=== PATIENT | female | born 1940 | race Caucasian/White ===

== ENCOUNTER 2017-01-12 09:43 | Inpatient (IN) | payer MEDICARE, BC ==
[~2017-01-12] VITALS: Ht 167.6 cm; Wt 100.0 kg
[~2017-01-12 09:43] MED LIST: CELE200C PO; HYDR-3245 PO; IBAN150T PO; LOSA1TAB25 PO
[2017-01-12] MEDS ORDERED: BUPIVACAINE/PF 0.5% ONE (12:38)
[2017-01-12] MEDS ORDERED: TRANEXAMIC ACID 100 MG/ML, 10ML ONE (12:38)
[2017-01-12] MEDS ORDERED: VANCOMYCIN 1,000 MG ONE (12:39)
[2017-01-12] MEDS ORDERED: EPINEPHRINE 1 MG/ML, 1ML ONE (12:39)
[2017-01-12] MEDS ORDERED: LACTATED RINGERS 1,000 ML IV SCH (13:25)
[2017-01-12] MEDS ORDERED: VANCOMYCIN PER PHARMACY MC PRN (13:30)
[2017-01-12 13:58] VITALS: BP 162/81
[2017-01-12] MEDS ORDERED: PHARMACOKINETIC MONITORING MC PRN (14:30)
[2017-01-12] MEDS ORDERED: VANCOMYCIN 1,800 MG in SODIUM CHLORIDE 0.9% 250 ML IV ONE (14:30)
[2017-01-12] MEDS ORDERED: FENTANYL PF 100 MCG/2ML ONE ×5 (14:48→17:44)
[2017-01-12] MEDS ORDERED: FENTANYL PF 250 MCG/5ML ONE (15:40)
[2017-01-12] MEDS ORDERED: PROPOFOL 10 MG/ML, 20ML ONE (15:40)
[2017-01-12] MEDS ORDERED: MIDAZOLAM 1 MG/ML, 2ML ONE (15:40)
[2017-01-12] MEDS ORDERED: KETOROLAC 30 MG/1 ML ONE (15:40)
[2017-01-12] MEDS ORDERED: CEFAZOLIN 1,000 MG ONE (15:40)
[2017-01-12] MEDS ORDERED: DEXAMETHASONE 4 MG/ML, 1ML ONE (15:40)
[2017-01-12] MEDS ORDERED: ONDANSETRON 2MG/ML, 2ML ONE (15:40)
[2017-01-12] MEDS ORDERED: BUPIVACAINE/PF 0.5% INFIL ONE (16:14)
[2017-01-12] MEDS ORDERED: VANCOMYCIN 1,000 MG IM ONE (16:14)
[2017-01-12] MEDS ORDERED: OXYcodone 5 MG/5 ML ORAL.SOL UDC ONE (17:44)
[2017-01-12] MEDS ORDERED: morphine SULFATE 10 MG/ML, 1ML ONE (17:44)
[2017-01-12] MEDS: morphine SULFATE 10 MG/ML, 1ML IV PRN ×2 (17:51→18:07)
[2017-01-12] MEDS ORDERED: ONDANSETRON 2MG/ML, 2ML IVPush PRN ×2 (18:00→21:00)
[2017-01-12] MEDS ORDERED: MEPERIDINE/PF 25MG/0.5ML IVPush PRN (18:00)
[2017-01-12] MEDS ORDERED: OXYcodone 5 MG/5 ML ORAL.SOL UDC PO PRN (18:00)
[2017-01-12] MEDS: FENTANYL PF 100 MCG/2ML IV PRN ×2 (18:33→18:46)
[2017-01-12 18:45] VITALS: BP 128/85
[2017-01-12] MEDS ORDERED: TRANEXAMIC ACID 1,000 MG in SODIUM CHLORIDE 0.9% 100 ML IVPB ONE (19:00)
[2017-01-12 19:51] VITALS: BP 128/85
[2017-01-12] MEDS ORDERED: KETOROLAC 30 MG/1 ML IV PRN (21:00)
[2017-01-12] MEDS ORDERED: OXYcodone IR 5MG TABLET PO PRN (21:00)
[2017-01-12] MEDS ORDERED: DIAZEPAM 5 MG TABLET PO PRN (21:00)
[2017-01-12] MEDS ORDERED: SCOPOLAMINE PATCH, 1.5MG PATCH.TD72 TD SCH (21:00)
[2017-01-12] MEDS ORDERED: LORazepam 2 MG/ML, 1ML IV PRN (21:00)
[2017-01-12] MEDS: SODIUM CHLORIDE FLUSH 10ML SYR IVF SCH (21:00)
[2017-01-12] MEDS ORDERED: MAGNESIUM HYDROXIDE 8%, 30ML UDC PO PRN (21:00)
[2017-01-12] MEDS ORDERED: ZOLPIDEM 5MG TABLET PO PRN (21:00)
[2017-01-12] MEDS ORDERED: PROMETHAZINE 25 MG/ML, 1ML IM PRN (21:00)
[2017-01-12] MEDS ORDERED: PROMETHAZINE 25 MG SUPP PR PRN (21:00)
[2017-01-12] MEDS ORDERED: LORazepam 1MG TABLET PO PRN (21:00)
[2017-01-12] MEDS ORDERED: DIPHENHYDRAMINE 25 MG CAPSULE PO PRN (21:00)
[2017-01-12] MEDS ORDERED: BISACODYL 10 MG SUPP PR PRN (21:00)
[2017-01-12] MEDS ORDERED: SODIUM CHLORIDE 0.9% 1,000ML IVBOLUS PRN (21:00)
[2017-01-12] MEDS ORDERED: ONDANSETRON ODT 4 MG PO PRN (21:00)
[2017-01-12] MEDS ORDERED: morphine SULFATE 10 MG/ML, 1ML IV PRN (21:00)
[2017-01-12] MEDS ORDERED: DEXAMETHASONE 4 MG/ML, 5ML IV PRN (21:00)
[2017-01-12] MEDS ORDERED: SENNA/DOCUSATE TABLET PO PRN (21:00)
[2017-01-12] MEDS ORDERED: ALUMINUM/MAG/SIMETHICONE 30 ML UDC PO PRN (21:00)
[2017-01-12] MEDS ORDERED: ACETAMINOPHEN 500 MG TABLET PO PRN (21:00)
[2017-01-12] MEDS: POTASSIUM CHLORIDE 20 MEQ in D5%-0.45% NACL 1,000 ML IV SCH (21:13)
[2017-01-12] MEDS: PREGABALIN 75 MG CAPSULE PO SCH (22:20)
[2017-01-12] MEDS: DOCUSATE 100 MG CAPSULE PO SCH (22:20)
[2017-01-12] MEDS: OXYcodone IR 5MG TABLET PO PRN (22:20)
[2017-01-12] MEDS: CEFAZOLIN PMX 1GM/50ML 50 ML IVPB SCH (23:40)
[2017-01-13] MEDS: OXYcodone IR 5MG TABLET PO PRN ×5 (02:24→22:49)
[2017-01-13 04:00] VITALS: BP 111/67
[2017-01-13 05:10] LABS: HEMATOCRIT 34.8 % (34.6-47.8); HEMOGLOBIN 11.5 g/dL (11.7-16.4); WHITE BLOOD COUNT 7.6 x10^3/uL (3.4-10)
[2017-01-13] MEDS ORDERED: DEXAMETHASONE 4 MG/ML, 1ML IVPush ONE (06:00)
[2017-01-13] MEDS: ASPIRIN 325 MG TABLET EC PO SCH ×2 (06:19→17:59)
[2017-01-13] MEDS: POTASSIUM CHLORIDE 20 MEQ in D5%-0.45% NACL 1,000 ML IV SCH ×3 (07:06→23:02)
[2017-01-13 07:50] VITALS: BP 109/68
[2017-01-13] MEDS: HYDROCHLOROTHIAZIDE 12.5 MG CAPSULE PO SCH (08:25)
[2017-01-13] MEDS: SODIUM CHLORIDE FLUSH 10ML SYR IVF SCH ×2 (08:25→20:38)
[2017-01-13] MEDS: LOSARTAN 50MG TABLET PO SCH (08:25)
[2017-01-13] MEDS: DOCUSATE 100 MG CAPSULE PO SCH ×2 (08:27→20:38)
[2017-01-13] MEDS: CEFAZOLIN PMX 1GM/50ML 50 ML IVPB SCH (08:27)
[2017-01-13] MEDS: PREGABALIN 75 MG CAPSULE PO SCH ×2 (08:27→20:38)
[2017-01-13 13:10] VITALS: BP 110/66
[2017-01-13] MEDS ORDERED: ASPI325T17 PO (17:12)
[2017-01-13] MEDS ORDERED: CEPH-368 PO (17:12)
[2017-01-13] MEDS ORDERED: OXYC10TA6 PO (17:12)
[2017-01-13 19:45] VITALS: BP 126/58
[2017-01-14 02:29] VITALS: BP 119/71
[2017-01-14 05:09] LABS: WHITE BLOOD COUNT 7.1 x10^3/uL (3.4-10)
[2017-01-14] MEDS: ASPIRIN 325 MG TABLET EC PO SCH (05:43)
[2017-01-14] MEDS: OXYcodone IR 5MG TABLET PO PRN ×2 (05:43→10:46)
[2017-01-14 07:01] VITALS: BP 126/75
[2017-01-14] MEDS: PREGABALIN 75 MG CAPSULE PO SCH (09:00)
[2017-01-14] MEDS: HYDROCHLOROTHIAZIDE 12.5 MG CAPSULE PO SCH (09:00)
[2017-01-14] MEDS: SODIUM CHLORIDE FLUSH 10ML SYR IVF SCH (09:01)
[2017-01-14] MEDS: DOCUSATE 100 MG CAPSULE PO SCH (09:01)
[2017-01-14] MEDS: LOSARTAN 50MG TABLET PO SCH (09:01)
[2017-01-14] MEDS ORDERED: DIAZ5TAB PO (11:24)
[2017-01-14] MEDS: POTASSIUM CHLORIDE 20 MEQ in D5%-0.45% NACL 1,000 ML IV SCH (11:36)
[2017-01-14 12:58] VITALS: BP 127/77
[2017-01-15] MEDS ORDERED: SCOPOLAMINE PATCH, 1.5MG PATCH.TD72 TD PRN (21:00)
[2017-02-10] MEDS ORDERED: IBANDRONATE 150 MG HOMEMEDPO SCH (09:00)
== END 2017-01-14 13:35 | disposition home or self-care (01) | DRG 470 ==
LOC: ORIP 12:55 → 4NOR 19:00
PROVIDERS: ADMIT Orthopaedic Surgery Orthopaedic Surgery of the Spine; ATTEND Orthopaedic Surgery Orthopaedic Surgery of the Spine
PROC: 0SRC0J9 Replacement of Right Knee Joint with Synthetic Substitute, Cemented, Open Approach (ICD-10-PCS; principal; 2017-01-12 16:00)
DX: M17.11 Unilateral primary osteoarthritis, right knee (principal); I10 Essential (primary) hypertension; M81.0 Age-related osteoporosis without current pathological fracture
CPT/HCPCS: 36415; 85025; C1713; J0171; J0690; J1100; J1885; J2250; J2405; J2704; J3010; J3370; J3480; J3490; C1776; J2270; J7050; J7120

== ENCOUNTER → 2017-06-20 | Outpatient (CLI) | payer MEDICARE, BC ==
[~2017-06-20] MED LIST changes: +ASPI325T17 PO; +CEPH-368 PO; +DIAZ5TAB PO; +OXYC10TA6 PO
[2017-06-20 13:38] LABS: BASOPHILS # (AUTO) 0.03 x10^3/uL (0-0.1); BASOPHILS % (AUTO) 1 % (0-1); EOSINOPHILS # (AUTO) 0.04 x10^3/uL (0-0.4); EOSINOPHILS % (AUTO) 1 % (1-7); LYMPHOCYTES # (AUTO) 1.24 x10^3/uL (1-3.4); LYMPHOCYTES % (AUTO) 28 % (22-44); MD NO; MEAN CORPUSCULAR HEMOGLOBIN 29.1 pg (27.0-34.8); MEAN CORPUSCULAR HGB CONC 33.8 g/dL (32.4-35.8); MEAN CORPUSCULAR VOLUME 86.1 fL (80-100); MONOCYTES # (AUTO) 0.22 x10^3/uL (0.2-0.8); MONOCYTES % (AUTO) 5 % (2-9); NEUTROPHILS # (AUTO) 2.98 x10^3/uL (1.8-6.8); NEUTROPHILS % (AUTO) 66 % (42-75); PLATELET COUNT 216 x10^3/uL (130-400); RED BLOOD COUNT 5.08 x10^6/uL (3.82-5.3); RED CELL DISTRIBUTION WIDTH 14.1 % (9.6-15.2)
[2017-06-20 13:44] LABS: INTERNATIONAL NORMALIZED RATIO 0.99 (0.93-1.1); PROTHROMBIN TIME 10.3 Seconds (9.6-11.5)
[2017-06-20 13:46] LABS: HCT (SEDRATE) 43.7 % (34.6-47.8)
[2017-06-20 13:47] LABS: ALANINE AMINOTRANSFERASE 30 U/L (12-78); ALBUMIN 4.1 g/dL (3.4-5.0); ANION GAP 6 mmol/L (5-15); CHLORIDE 106 mmol/L (98-107); CREATININE 0.88 mg/dL (0.55-1.02)
[2017-06-20 13:48] LABS: MICROSCOPIC AUTO
[2017-06-20 13:49] LABS: ALKALINE PHOSPHATASE 62 U/L (45-117); TOTAL PROTEIN 8.1 g/dL (6.4-8.2)
== END | disposition home or self-care (01) ==
LOC: STAR 12:17
PROVIDERS: ATTEND Orthopaedic Surgery Orthopaedic Surgery of the Spine
DX: Z01.818 Encounter for other preprocedural examination (principal); M17.11 Unilateral primary osteoarthritis, right knee; I49.1 Atrial premature depolarization
CPT/HCPCS: 36415; 71046; 80053; 81001; 85025; 85610; 85651; 85730; 87081; 93005

== ENCOUNTER 2017-06-29 05:27 | Inpatient (IN) | payer MEDICARE, BC ==
[~2017-06-29] VITALS: Ht 167.6 cm; Wt 92.0 kg
[2017-06-29] MEDS ORDERED: VANCOMYCIN PER PHARMACY MC ONE (05:57)
[2017-06-29] MEDS ORDERED: VANCOMYCIN 1,600 MG in SODIUM CHLORIDE 0.9% 250 ML IV ONE (06:00)
[2017-06-29] MEDS ORDERED: LACTATED RINGERS 1,000 ML IV SCH (06:06)
[2017-06-29] MEDS ORDERED: GABAPENTIN 300 MG CAPSULE PO ONE (06:30)
[2017-06-29] MEDS ORDERED: OxyconTIN ER 10 MG TAB.ER PO ONE (06:30)
[2017-06-29] MEDS ORDERED: ONDANSETRON ODT 8 MG PO ONE (06:30)
[2017-06-29] MEDS ORDERED: ACETAMINOPHEN 500 MG TABLET PO ONE (06:30)
[2017-06-29] MEDS ORDERED: MIDAZOLAM 1 MG/ML, 2ML ONE (06:45)
[2017-06-29] MEDS ORDERED: FENTANYL PF 250 MCG/5ML ONE (06:45)
[2017-06-29] MEDS ORDERED: ROCURONIUM 10MG/ML,5ML ONE (06:47)
[2017-06-29] MEDS ORDERED: PROPOFOL 10 MG/ML, 20ML ONE (06:48)
[2017-06-29] MEDS ORDERED: NEOSTIGMINE 1 MG/ML, 10ML ONE (06:49)
[2017-06-29] MEDS ORDERED: GLYCOPYRROLATE 0.4 MG/2 ML, 2ML ONE (06:49)
[2017-06-29] MEDS ORDERED: ROPIvacaine/PF 0.2%, 20 ML ONE (06:50)
[2017-06-29] MEDS ORDERED: DEXAMETHASONE 4 MG/ML, 1ML ONE ×2 (06:50)
[2017-06-29] MEDS ORDERED: WATER-INJECTION,STERILE 10 ML IV ONE (06:53)
[2017-06-29] MEDS ORDERED: CEFAZOLIN 1,000 MG ONE ×2 (06:53)
[2017-06-29] MEDS ORDERED: BUPIVACAINE/PF 0.5% ONE (06:58)
[2017-06-29] MEDS ORDERED: EPINEPHRINE 1 MG/ML, 1ML ONE (06:59)
[2017-06-29] MEDS ORDERED: TRANEXAMIC ACID 100 MG/ML, 10ML ONE ×2 (06:59)
[2017-06-29] MEDS ORDERED: VANCOMYCIN 1,000 MG ONE (06:59)
[2017-06-29] MEDS ORDERED: MEPERIDINE/PF 25MG/0.5ML IVPush PRN (07:30)
[2017-06-29] MEDS ORDERED: ONDANSETRON ODT 8 MG PO PRN (07:30)
[2017-06-29] MEDS ORDERED: hydrALAzine 20 MG/ML, 1ML IV PRN (07:30)
[2017-06-29] MEDS ORDERED: PROMETHAZINE 25 MG SUPP PR PRN ×2 (07:30→13:00)
[2017-06-29] MEDS ORDERED: FENTANYL PF 100 MCG/2ML IV PRN (07:30)
[2017-06-29] MEDS ORDERED: LABETALOL 5MG/ML, 20ML IV PRN (07:30)
[2017-06-29] MEDS ORDERED: PROMETHAZINE 25 MG/ML, 1ML IV PRN ×2 (07:30→10:30)
[2017-06-29] MEDS ORDERED: OXYcodone 5 MG/5 ML ORAL.SOL UDC PO PRN (07:30)
[2017-06-29] MEDS ORDERED: HYDROmorphone 1 MG/ML, 1ML IV PRN (07:30)
[2017-06-29] MEDS ORDERED: PROMETHAZINE 12.5 MG SUPP PR PRN (07:30)
[2017-06-29] MEDS ORDERED: FENTANYL PF 100 MCG/2ML ONE (08:39)
[2017-06-29] MEDS ORDERED: OXYcodone 5 MG/5 ML ORAL.SOL UDC ONE (09:55)
[2017-06-29] MEDS ORDERED: MORPHINE SULFATE 4 MG/ML, 1ML ONE ×2 (09:55→10:10)
[2017-06-29] MEDS ORDERED: PROMETHAZINE 25 MG/ML, 1ML ONE (09:55)
[2017-06-29] MEDS: MORPHINE SULFATE 4 MG/ML, 1ML IVPush PRN ×2 (10:00→10:07)
[2017-06-29] MEDS ORDERED: MEPERIDINE/PF 25MG/0.5ML ONE (10:10)
[2017-06-29] MEDS ORDERED: TRANEXAMIC ACID 1,000 MG in SODIUM CHLORIDE 0.9% 100 ML IVPB ONE (12:15)
[2017-06-29] MEDS ORDERED: SODIUM CHLORIDE 0.9% 1,000ML IVBOLUS PRN (12:30)
[2017-06-29] MEDS ORDERED: SENNA/DOCUSATE TABLET PO PRN (12:30)
[2017-06-29] MEDS ORDERED: LORazepam 2 MG/ML, 1ML IV PRN (13:00)
[2017-06-29] MEDS ORDERED: ONDANSETRON ODT 4 MG PO PRN (13:00)
[2017-06-29] MEDS ORDERED: DEXAMETHASONE 4 MG/ML, 1ML IV PRN (13:00)
[2017-06-29] MEDS: BONIVA MC SCH ×2 (13:00→20:33)
[2017-06-29] MEDS ORDERED: MAGNESIUM HYDROXIDE 8%, 30ML UDC PO PRN (13:00)
[2017-06-29] MEDS ORDERED: BISACODYL 10 MG SUPP PR PRN (13:00)
[2017-06-29] MEDS ORDERED: DIPHENHYDRAMINE 25 MG CAPSULE PO PRN (13:00)
[2017-06-29] MEDS ORDERED: OXYcodone IR 5MG TABLET PO PRN (13:00)
[2017-06-29] MEDS ORDERED: PROMETHAZINE 25 MG/ML, 1ML IM PRN (13:00)
[2017-06-29] MEDS ORDERED: SCOPOLAMINE PATCH, 1.5MG PATCH.TD72 TD PRN (13:00)
[2017-06-29] MEDS ORDERED: ONDANSETRON 2MG/ML, 2ML IVPush PRN (13:00)
[2017-06-29] MEDS ORDERED: LORazepam 1MG TABLET PO PRN (13:00)
[2017-06-29] MEDS ORDERED: ACETAMINOPHEN 500 MG TABLET PO PRN (13:00)
[2017-06-29] MEDS ORDERED: ALUMINUM/MAG/SIMETHICONE 30 ML UDC PO PRN (13:00)
[2017-06-29] MEDS ORDERED: KETOROLAC 30 MG/1 ML IV PRN (13:00)
[2017-06-29] MEDS ORDERED: morphine SULFATE 10 MG/ML, 1ML IV PRN (13:00)
[2017-06-29] MEDS: POTASSIUM CHLORIDE 20 MEQ in D5%-0.45% NACL 1,000 ML IV SCH ×2 (14:35→22:04)
[2017-06-29] MEDS: LABETALOL 5MG/ML, 20ML IVPush SCH ×2 (14:36→20:33)
[2017-06-29] MEDS: OXYcodone IR 5MG TABLET PO PRN ×2 (14:39→22:37)
[2017-06-29 14:48] VITALS: BP 146/63
[2017-06-29] MEDS: CEFAZOLIN PMX 2GM/50ML 50 ML IVPB SCH ×2 (15:56→23:42)
[2017-06-29 18:45] VITALS: BP 143/83
[2017-06-29] MEDS: DOCUSATE 100 MG CAPSULE PO SCH (20:49)
[2017-06-29] MEDS: ASPIRIN 325 MG TABLET EC PO SCH (20:49)
[2017-06-30 00:54] VITALS: BP 125/75
[2017-06-30] MEDS: BONIVA MC SCH ×2 (03:49→13:00)
[2017-06-30 04:42] VITALS: BP 138/70
[2017-06-30] MEDS: LABETALOL 5MG/ML, 20ML IVPush SCH ×3 (04:54→21:23)
[2017-06-30 05:21] LABS: BASOPHILS # (AUTO) 0.01 x10^3/uL (0-0.1); BASOPHILS % (AUTO) 0 % (0-1); EOSINOPHILS # (AUTO) 0.01 x10^3/uL (0-0.4); EOSINOPHILS % (AUTO) 0 % (1-7); LYMPHOCYTES # (AUTO) 0.73 x10^3/uL (1-3.4); LYMPHOCYTES % (AUTO) 10 % (22-44); MD NO; MEAN CORPUSCULAR HGB CONC 33.7 g/dL (32.4-35.8); MEAN CORPUSCULAR VOLUME 86.3 fL (80-100); MONOCYTES # (AUTO) 0.73 x10^3/uL (0.2-0.8); MONOCYTES % (AUTO) 10 % (2-9); NEUTROPHILS # (AUTO) 5.63 x10^3/uL (1.8-6.8); NEUTROPHILS % (AUTO) 79 % (42-75); PLATELET COUNT 191 x10^3/uL (130-400); RED BLOOD COUNT 4.25 x10^6/uL (3.82-5.3); RED CELL DISTRIBUTION WIDTH 14.1 % (9.6-15.2)
[2017-06-30 08:59] VITALS: BP 106/57
[2017-06-30] MEDS: DOCUSATE 100 MG CAPSULE PO SCH ×2 (09:33→21:23)
[2017-06-30] MEDS: HYDROCHLOROTHIAZIDE 12.5 MG CAPSULE PO SCH (09:34)
[2017-06-30] MEDS: LOSARTAN 50MG TABLET PO SCH (09:34)
[2017-06-30] MEDS: ASPIRIN 325 MG TABLET EC PO SCH ×2 (09:34→21:23)
[2017-06-30 13:01] VITALS: BP 121/73
[2017-06-30] MEDS: POTASSIUM CHLORIDE 20 MEQ in D5%-0.45% NACL 1,000 ML IV SCH (15:00)
[2017-06-30] MEDS: DIAZEPAM 5 MG TABLET PO PRN (16:10)
[2017-06-30 19:18] VITALS: BP 142/77
[2017-06-30] MEDS: OXYcodone IR 5MG TABLET PO PRN (21:23)
[2017-06-30] MEDS: ZOLPIDEM 5MG TABLET PO PRN (21:25)
[2017-07-01] MEDS: POTASSIUM CHLORIDE 20 MEQ in D5%-0.45% NACL 1,000 ML IV SCH ×3 (01:06→21:18)
[2017-07-01 01:16] VITALS: BP 124/76
[2017-07-01] MEDS: OXYcodone IR 5MG TABLET PO PRN ×3 (01:25→16:22)
[2017-07-01] MEDS: LABETALOL 5MG/ML, 20ML IVPush SCH ×4 (05:00→21:00)
[2017-07-01 05:03] LABS: BASOPHILS # (AUTO) 0.02 x10^3/uL (0-0.1); BASOPHILS % (AUTO) 0 % (0-1); EOSINOPHILS % (AUTO) 0 % (1-7); LYMPHOCYTES # (AUTO) 1.35 x10^3/uL (1-3.4); LYMPHOCYTES % (AUTO) 16 % (22-44); MD NO; MEAN CORPUSCULAR HEMOGLOBIN 29.2 pg (27.0-34.8); MEAN CORPUSCULAR HGB CONC 33.2 g/dL (32.4-35.8); MEAN PLATELET VOLUME 9.1 fL (7.4-10.4); MONOCYTES # (AUTO) 0.81 x10^3/uL (0.2-0.8); MONOCYTES % (AUTO) 10 % (2-9); NEUTROPHILS # (AUTO) 6.19 x10^3/uL (1.8-6.8); NEUTROPHILS % (AUTO) 74 % (42-75); PLATELET COUNT 216 x10^3/uL (130-400); RED BLOOD COUNT 4.32 x10^6/uL (3.82-5.3)
[2017-07-01 07:00] VITALS: BP 120/75
[2017-07-01] MEDS: LOSARTAN 50MG TABLET PO SCH (08:17)
[2017-07-01] MEDS: DOCUSATE 100 MG CAPSULE PO SCH ×2 (08:17→20:41)
[2017-07-01] MEDS: HYDROCHLOROTHIAZIDE 12.5 MG CAPSULE PO SCH (08:18)
[2017-07-01] MEDS: ASPIRIN 325 MG TABLET EC PO SCH ×2 (08:18→20:41)
[2017-07-01] MEDS: BONIVA MC SCH ×3 (08:19→21:00)
[2017-07-01 12:41] VITALS: BP 121/59
[2017-07-01 19:17] VITALS: BP 118/71
[2017-07-01] MEDS: ZOLPIDEM 5MG TABLET PO PRN (20:44)
[2017-07-01] MEDS: DIAZEPAM 5 MG TABLET PO PRN (20:47)
[2017-07-02 01:50] VITALS: BP 109/71
[2017-07-02] MEDS: OXYcodone IR 5MG TABLET PO PRN ×4 (01:53→13:10)
[2017-07-02] MEDS: BONIVA MC SCH ×2 (05:00→13:00)
[2017-07-02] MEDS: LABETALOL 5MG/ML, 20ML IVPush SCH ×3 (05:00→13:00)
[2017-07-02 05:05] LABS: BASOPHILS # (AUTO) 0.03 x10^3/uL (0-0.1); BASOPHILS % (AUTO) 1 % (0-1); EOSINOPHILS # (AUTO) 0.11 x10^3/uL (0-0.4); EOSINOPHILS % (AUTO) 2 % (1-7); LYMPHOCYTES # (AUTO) 2.36 x10^3/uL (1-3.4); LYMPHOCYTES % (AUTO) 34 % (22-44); MD NO; MEAN CORPUSCULAR HEMOGLOBIN 28.6 pg (27.0-34.8); MEAN CORPUSCULAR HGB CONC 32.8 g/dL (32.4-35.8); MEAN CORPUSCULAR VOLUME 87.4 fL (80-100); MONOCYTES # (AUTO) 0.59 x10^3/uL (0.2-0.8); MONOCYTES % (AUTO) 9 % (2-9); NEUTROPHILS # (AUTO) 3.92 x10^3/uL (1.8-6.8); NEUTROPHILS % (AUTO) 56 % (42-75); PLATELET COUNT 217 x10^3/uL (130-400); RED BLOOD COUNT 4.12 x10^6/uL (3.82-5.3)
[2017-07-02 05:37] VITALS: BP 114/63
[2017-07-02 07:04] VITALS: BP 108/67
[2017-07-02] MEDS: POTASSIUM CHLORIDE 20 MEQ in D5%-0.45% NACL 1,000 ML IV SCH (07:24)
[2017-07-02] MEDS: LOSARTAN 50MG TABLET PO SCH (09:11)
[2017-07-02] MEDS: HYDROCHLOROTHIAZIDE 12.5 MG CAPSULE PO SCH (09:11)
[2017-07-02] MEDS: DOCUSATE 100 MG CAPSULE PO SCH (09:12)
[2017-07-02] MEDS: ASPIRIN 325 MG TABLET EC PO SCH (09:12)
[2017-07-02] MEDS ORDERED: OXYC5CAP2 PO (13:24)
[2017-07-02] MEDS ORDERED: DIAZ5TAB4 PO (13:24)
[2017-07-02] MEDS ORDERED: ASPI-650 PO (13:25)
[2017-07-02] MEDS ORDERED: CEPH-368 PO (13:25)
== END 2017-07-02 13:41 | disposition home or self-care (01) | DRG 470 ==
LOC: ORIP 05:27 → 4NOR 11:32 → DCLOUNGE 07-02 13:19
PROVIDERS: ADMIT Orthopaedic Surgery Orthopaedic Surgery of the Spine; ATTEND Orthopaedic Surgery Orthopaedic Surgery of the Spine
PROC: 0SRD0J9 Replacement of Left Knee Joint with Synthetic Substitute, Cemented, Open Approach (ICD-10-PCS; principal; 2017-06-29 07:30)
DX: M17.12 Unilateral primary osteoarthritis, left knee (principal); Z91.81 History of falling
CPT/HCPCS: 36415; 85025; C1713; J0171; J0690; J1100; J1885; J2175; J2250; J2704; J2710; J2795; J3010; J3370; J3480; J3490; Q0162; C1776